=== PATIENT | male | born 1965 | race Caucasian/White ===

== ENCOUNTER 2023-12-03 07:35 | Day surgery (SDC) | payer BC ==
[~2023-12-03] VITALS: Ht 182.9 cm; Wt 100.7 kg
[~2023-12-03 07:35] MED LIST: ASPIRIN E.C. 8181 MG PO; FLEXERIL 1010 MG/TAB PO; LIPITOR20 MG PO; LR 1,000 ML IV SCH; NORCO 325 MG-51 TAB PO; PRINIVIL10 MG PO
[2023-12-03 09:39] VITALS: BP 131/85; PULSE 63; TEMP 98.2
[2023-12-03] MEDS ORDERED: HYDROmorphone 1 MG/1 ML SYRINGE [PACU/SDC ONLY] IV PRN ×2 (09:45→12:45)
[2023-12-03] MEDS ORDERED: hydrALAZINE 20 MG/ML 1 ML VIAL IV PRN ×2 (09:45→12:45)
[2023-12-03] MEDS ORDERED: Ondansetron 4 MG/2 ML VIAL IV PRN ×3 (09:45→14:45)
[2023-12-03] MEDS ORDERED: fentaNYL 50 MCG/ML 1 ML SYRINGE/VIAL [PACU/SDC ONLY] IV PRN ×3 (09:45→12:45)
[2023-12-03] MEDS ORDERED: droPERidol 2.5 MG/ML 2 ML VIAL IV PRN ×2 (09:45→12:45)
[2023-12-03] MEDS ORDERED: NORCO 325 MG-51 TAB PO (12:17)
[2023-12-03] MEDS ORDERED: Ketorolac 30 MG/ML VIAL ONE (12:28)
[2023-12-03] MEDS ORDERED: Ondansetron 4 MG/2 ML VIAL ONE (12:28)
[2023-12-03] MEDS ORDERED: NS 10 ML IV ONE (12:28)
[2023-12-03] MEDS ORDERED: Lidocaine PF 2% (20 MG/ML) 5 ML VIAL ONE (12:28)
[2023-12-03] MEDS ORDERED: dexAMETHasone 10 MG/ML VIAL ONE (12:28)
[2023-12-03] MEDS ORDERED: Rocuronium 50 MG/5 ML Multi-Dose VIAL ONE (12:29)
[2023-12-03] MEDS ORDERED: fentaNYL 50 MCG/ML 2 ML VIAL ONE (12:29)
[2023-12-03] MEDS ORDERED: Topical Skin Adhesive 1 EACH (1 ML) TOP ONE (14:03)
[2023-12-03] MEDS ORDERED: Acetaminophen 325 MG TAB PO PRN (14:45)
[2023-12-03] MEDS ORDERED: Ibuprofen 600 MG TAB PO PRN (14:45)
[2023-12-03 15:10] VITALS: BP 114/69; PULSE 66; TEMP 98
--- NOTE | 2023-12-03 15:10 | NUR ---
The patient arrived back to [facility] from the recovery room at this time. The patient appears alert and oriented and reports minimal pain in his left groin at this time. Post operative vital signs were started at this time. The patient has lap sites that are covered with surgical glue and without redness or edema. He agrees to try some ice water but denies wanting any food at this time. The patien's , Carol, was brought back to be at his bedside.
[2023-12-03 15:30] VITALS: BP 125/79; PULSE 65
--- NOTE | 2023-12-03 15:30 | NUR ---
The patient appears to be tolerating the water well. The patient reports increased pain at his incision site and was given a PRN dose of [place]. The patient was also given some saltine crackers to eat to help with nausea from the pain pill. Vital signs appear stable. remains at his bedside.
[2023-12-03 15:40] VITALS: BP 145/77; PULSE 68
--- NOTE | 2023-12-03 15:45 | NUR ---
The patient has finished the food and drink and appeared to tolerate both well. Vital signs appear stable. remains at his bedside.
[2023-12-03 15:55] VITALS: BP 123/81; PULSE 57
--- NOTE | 2023-12-03 15:55 | NUR ---
Discharge instructions were reviewed with the patient and his at this time. They both verbalized understanding and have no questions for the nurse at this time. The patient's IV to his right forearm was removed and a pressure dressing was applied to the site. The nurse instructed the patient to get dressed and notify the staff when he is ready to be escorted out.
--- NOTE | 2023-12-03 16:05 | NUR ---
The patient was escorted out via wheelchair to a private vehicle by SKINNY Young. The patient's belongings and discharge paperwork were sent with him. The patient's , Carol, is present to drive him home.
== END 2023-12-03 16:05 | disposition home or self-care (01) ==
LOC: SDCO 07:35
DX: K40.90 Unilateral inguinal hernia, without obstruction or gangrene, not specified as recurrent (principal); F17.210 Nicotine dependence, cigarettes, uncomplicated; F17.290 Nicotine dependence, other tobacco product, uncomplicated
CPT/HCPCS: C1781; J0690; J1100; J1885; J2405; J2704; J3010; J7120